=== PATIENT | female | born 1975 | race Native Hawaiian/Other Pacific Islander ===

== ENCOUNTER → 2020-11-23 | Outpatient (CLI) | payer OTHER ==
[~2020-11-23] MED LIST: ACETAMINOPHEN500 MG PO; CYCLOBENZAPRINE10 MG PO; ESCITALOPRAM OX10 MG PO; HYDROXYZINE PAM25 MG PO; IBUPROFEN800 MG PO; NICOTINE PATCH1 EAC1 TD; QUETIAPINE FUMA25 MG PO; QUETIAPINE FUMA50 MG PO; SERTRALINE HCL50 MG PO; VISTARIL25 MG PO
== END ==
LOC: RAD 16:38
DX: M25.50 Pain in unspecified joint (principal); M17.0 Bilateral primary osteoarthritis of knee
CPT/HCPCS: 73030; 73110; 73522; 73562

== ENCOUNTER 2021-02-05 20:01 | Emergency (ER) | payer OTHER ==
[~2021-02-05 20:01] MED LIST changes: -CYCLOBENZAPRINE10 MG PO; -ESCITALOPRAM OX10 MG PO; -HYDROXYZINE PAM25 MG PO; -IBUPROFEN800 MG PO; -QUETIAPINE FUMA25 MG PO; -VISTARIL25 MG PO
[2021-02-05 23:15] LABS: HEMOGLOBIN 13.8 gm/dl (12.3-15.3); RED BLOOD COUNT 4.66 M/UL (4.00-5.10); WHITE BLOOD COUNT 9.9 K/UL (4.5-11.0)
[2021-02-05 23:35] LABS: BUN/CREATININE RATIO 15 (0-10)
[2021-02-05] MEDS ORDERED: VISTARIL25 MG PO (23:36)
[2021-02-05] MEDS ORDERED: CYCLOBENZAPRINE10 MG PO (23:36)
[2021-02-05] MEDS ORDERED: IBUPROFEN800 MG PO (23:36)
== END 2021-02-06 00:25 | disposition home or self-care (01) ==
LOC: ER1 20:01
PROVIDERS: Emergency Medicine
DX: F41.0 Panic disorder [episodic paroxysmal anxiety] (principal); R07.9 Chest pain, unspecified; F17.210 Nicotine dependence, cigarettes, uncomplicated; Z88.2 Allergy status to sulfonamides
CPT/HCPCS: 71045; 80053; 82550; 82553; 83874; 84484; 85025; 93005; 99285

== ENCOUNTER → 2021-04-03 | Outpatient (CLI) | payer OTHER ==
[~2021-04-03] MED LIST changes: +CYCLOBENZAPRINE10 MG PO; +ESCITALOPRAM OX10 MG PO; +HYDROXYZINE PAM25 MG PO; +IBUPROFEN800 MG PO; +QUETIAPINE FUMA25 MG PO; +VISTARIL25 MG PO
== END ==
LOC: EXRD 09:00
DX: R10.9 Unspecified abdominal pain (principal); K80.20 Calculus of gallbladder without cholecystitis without obstruction
CPT/HCPCS: 76705

== ENCOUNTER 2021-05-29 14:43 | Observation (INO) | payer OTHER ==
[~2021-05-29] VITALS: Ht 170.2 cm; Wt 101.7 kg
[~2021-05-29 14:43] MED LIST changes: -ESCITALOPRAM OX10 MG PO; -HYDROXYZINE PAM25 MG PO; -QUETIAPINE FUMA25 MG PO
[2021-05-29 15:52] LABS: HEMOGLOBIN 13.8 gm/dl (12.3-15.3); RED BLOOD COUNT 4.64 M/UL (4.00-5.10); WHITE BLOOD COUNT 12.5 K/UL (4.5-11.0)
[2021-05-29 16:35] LABS: BUN/CREATININE RATIO 12 (0-10)
[2021-05-29] MEDS ORDERED: QUETIAPINE FUMA25 MG PO (21:12)
[2021-05-29] MEDS ORDERED: ESCITALOPRAM OX10 MG PO (21:12)
[2021-05-29] MEDS ORDERED: HYDROXYZINE PAM25 MG PO (21:13)
--- NOTE | 2021-05-29 21:19 | NUR ---
POISION CONTROL CALLED FOR PATIENT UPDATE. SPOKE WITH MICHELLE UPDATE GIVEN. ALL QUESTIONS ANSWERED.
--- NOTE | 2021-05-29 23:24 | NUR ---
LISHA FROM POSION CONTROL UPDATED ON PATIENT CONDITION AT [id number].
[2021-05-30 05:58] LABS: HEMOGLOBIN 11.7 gm/dl (12.3-15.3); RED BLOOD COUNT 3.99 M/UL (4.00-5.10)
[2021-05-30 06:14] LABS: BUN/CREATININE RATIO 11 (0-10)
--- NOTE | 2021-05-31 15:36 | NUR ---
NURSE SPOKE WITH BOTTOMING MACHINE OPERATOR NARCISO. SHE STATES ALL PAPERWORK HAS FILLED OUT AND APPROVED FOR TRANSFER TO THE [facility]. SHE STATES THAT NO OTHER PAPERWORK IS REQUIRED TO BE FILLED OUT.
--- NOTE | 2021-05-31 16:05 | NUR ---
PERSONAL BELONGINGS (MEDICATIONS) RECEIVED FROM PHARMACY. PER SURYA MANZANOIOSTara DUARTE, REPORT TO [facility] MEDICATIONS BEING SENT BY WAY OF [facility]. [facility] NURSE WILL RECEIVE.
== END 2021-05-31 16:56 ==
LOC: ER1 14:43 → CDU 18:14 → CCU 19:52 → MED SURG 4 05-30 09:30
PROVIDERS: Nurse Practitioner; ADMIT Internal Medicine
DX: T43.592A Poisoning by other antipsychotics and neuroleptics, intentional self-harm, initial encounter (principal); R53.83 Other fatigue; G92 Toxic encephalopathy; F31.9 Bipolar disorder, unspecified; F41.9 Anxiety disorder, unspecified; I95.9 Hypotension, unspecified; Z88.2 Allergy status to sulfonamides; Z72.0 Tobacco use; Z20.822 Contact with and (suspected) exposure to COVID-19; R91.8 Other nonspecific abnormal finding of lung field; I49.1 Atrial premature depolarization; R45.851 Suicidal ideations; M19.90 Unspecified osteoarthritis, unspecified site; M79.7 Fibromyalgia
CPT/HCPCS: 36415; 36600; 71045; 80053; 80307; 81001; 82550; 82553; 82803; 83605; 83874; 84484; 84703; 85025; 85610; 85730; 87086; 93005; 96374; 99285; C9113; G0378; G0480; J7030; U0002

== ENCOUNTER 2021-07-10 02:44 | Emergency (ER) | payer OTHER ==
[~2021-07-10 02:44] MED LIST changes: +ESCITALOPRAM OX10 MG PO; +HYDROXYZINE PAM25 MG PO; +QUETIAPINE FUMA25 MG PO
[2021-07-10] MEDS ORDERED: CLEOCIN HCL150 MG PO (03:29)
== END 2021-07-10 03:31 | disposition home or self-care (01) ==
LOC: ER1 02:44
DX: L02.214 Cutaneous abscess of groin (principal); Z88.2 Allergy status to sulfonamides; F17.210 Nicotine dependence, cigarettes, uncomplicated
CPT/HCPCS: 99283

== ENCOUNTER 2022-03-04 20:12 | Emergency (ER) | payer OTHER ==
[~2022-03-04 20:12] MED LIST changes: +CLEOCIN HCL150 MG PO
[2022-03-05] MEDS ORDERED: MOBIC7.5 MG PO (00:45)
== END 2022-03-05 01:38 | disposition home or self-care (01) ==
LOC: ER1 20:12
DX: M17.11 Unilateral primary osteoarthritis, right knee (principal); F17.210 Nicotine dependence, cigarettes, uncomplicated
CPT/HCPCS: 73562; 96372; 99283; J1885

== ENCOUNTER → 2022-03-29 | Outpatient (CLI) | payer OTHER ==
[~2022-03-29] MED LIST changes: +MOBIC7.5 MG PO
== END ==
LOC: US 09:00
DX: D69.6 Thrombocytopenia, unspecified (principal); K80.20 Calculus of gallbladder without cholecystitis without obstruction
CPT/HCPCS: 76705

== ENCOUNTER 2022-04-17 11:48 | Observation (INO) | payer OTHER ==
[~2022-04-17] VITALS: Ht 170.2 cm; Wt 99.8 kg
[2022-04-17 14:35] LABS: HEMOGLOBIN 13.8 gm/dl (12.3-15.3); RED BLOOD COUNT 4.64 M/UL (4.00-5.10); WHITE BLOOD COUNT 6.8 K/UL (4.5-11.0)
[2022-04-17 15:28] LABS: BUN/CREATININE RATIO 15 (0-10)
[2022-04-17] MEDS ORDERED: VRAYLAR1.5 MG PO (18:33)
[2022-04-17] MEDS ORDERED: LEXAPRO20 MG PO (18:34)
[2022-04-17] MEDS ORDERED: PRAZOSIN HCL2 MG PO (18:34)
[2022-04-17] MEDS ORDERED: MELOXICAM7.5 MG PO (18:34)
== END 2022-04-17 19:24 | disposition left against medical advice (07) ==
LOC: ER1 11:48 → CDU 16:46
PROVIDERS: Emergency Medicine; ADMIT Internal Medicine
DX: R53.1 Weakness (principal); M79.601 Pain in right arm; M79.604 Pain in right leg; R21 Rash and other nonspecific skin eruption; F31.9 Bipolar disorder, unspecified; F17.200 Nicotine dependence, unspecified, uncomplicated; Z86.73 Personal history of transient ischemic attack (TIA), and cerebral infarction without residual deficits; Z53.29 Procedure and treatment not carried out because of patient's decision for other reasons
CPT/HCPCS: 70450; 70496; 70498; 71045; 80053; 81001; 82550; 82553; 84484; 84703; 85025; 85610; 85730; 93005; 99285; G0378; Q9967

== ENCOUNTER 2022-04-21 22:01 | Emergency (ER) | payer OTHER ==
[~2022-04-21 22:01] MED LIST changes: +LEXAPRO20 MG PO; +MELOXICAM7.5 MG PO; +PRAZOSIN HCL2 MG PO; +VRAYLAR1.5 MG PO
== END 2022-04-22 04:15 | disposition home or self-care (01) ==
LOC: ER1 22:01
DX: R42 Dizziness and giddiness (principal); F17.200 Nicotine dependence, unspecified, uncomplicated; Z86.59 Personal history of other mental and behavioral disorders; Z87.39 Personal history of other diseases of the musculoskeletal system and connective tissue; Z86.73 Personal history of transient ischemic attack (TIA), and cerebral infarction without residual deficits; Z88.2 Allergy status to sulfonamides
CPT/HCPCS: 99283

== ENCOUNTER 2022-07-11 21:23 | Emergency (ER) | payer OTHER ==
[2022-07-11] MEDS ORDERED: IBUPROFEN600 MG PO (23:05)
== END 2022-07-11 23:18 | disposition home or self-care (01) ==
LOC: ER1 21:23
DX: J02.9 Acute pharyngitis, unspecified (principal); D64.9 Anemia, unspecified; F17.210 Nicotine dependence, cigarettes, uncomplicated; Z88.2 Allergy status to sulfonamides
CPT/HCPCS: 87081; 87880; 99283

== ENCOUNTER → 2022-08-23 | Outpatient (CLI) | payer OTHER ==
[~2022-08-23] MED LIST changes: +IBUPROFEN600 MG PO
== END ==
LOC: KOH-I 08-15 08:45
DX: D69.6 Thrombocytopenia, unspecified (principal); K80.20 Calculus of gallbladder without cholecystitis without obstruction
CPT/HCPCS: 76705